=== PATIENT | female | born 2000 | race African-American/Black ===

== ENCOUNTER 2020-03-18 13:12 | Day surgery (SDC) | payer OTHER ==
[~2020-03-18] VITALS: Ht 160 cm; Wt 70.7 kg
== END 2020-03-18 15:40 | disposition home or self-care (01) ==
LOC: ORSCSDS 13:12
PROVIDERS: Surgery
PROC: 0DB68ZX Excision of Stomach, Via Natural or Artificial Opening Endoscopic, Diagnostic (ICD-10-PCS; principal; 2020-03-18 14:45)
PROC: 0DJD8ZZ Inspection of Lower Intestinal Tract, Via Natural or Artificial Opening Endoscopic (ICD-10-PCS; principal; 2020-03-18 14:45)
PROC: 0DB48ZX Excision of Esophagogastric Junction, Via Natural or Artificial Opening Endoscopic, Diagnostic (ICD-10-PCS; principal; 2020-03-18 14:45)
DX: R10.13 Epigastric pain (principal); R19.4 Change in bowel habit; K58.9 Irritable bowel syndrome, unspecified
CPT/HCPCS: 88305; 88342; J2704; J7120